=== PATIENT | male | born 1925 | race African-American/Black ===

== ENCOUNTER 2016-04-22 08:50 | Emergency (ER) | payer MEDICARE, MEDICAID ==
[~2016-04-22] VITALS: Ht 165.1 cm; Wt 59.0 kg
[2016-04-22 09:55] LABS: HEMATOCRIT. 40.1 % (42.0-52.0); HEMOGLOBIN. 13.4 g/dL (14.0-18.0); MEAN CORPUSCULAR HEMOGLOBIN 33.3 pg (28.0-32.0); MEAN CORPUSCULAR HGB CONC 33.3 g/dL (31.0-37.0); MEAN PLATELET VOLUME 9.1 fl (7.4-10.4); PLATELET 136 x1000/uL (130-400); RED BLOOD CELL COUNT 4.01 mill/uL (4.7-6.1); RED CELL DISTRIBUTION WIDTH 13.7 % (11.6-14.6); WHITE BLOOD COUNT 11.1 x1000/uL (4.5-11.0)
[2016-04-22 10:00] LABS: DIFFERENTIAL COMMENT 1
[2016-04-22 10:03] LABS: INR 1.3; PROTHROMBIN TIME 13.3 sec
[2016-04-22 10:11] LABS: ALANINE AMINOTRANSFERASE 21 IU/L (13-61); ALBUMIN 3.4 g/dL (3.4-5.0); ANION GAP 12; CALCIUM 9.1 mg/dL (8.5-10.1); CARBON DIOXIDE 25 mEq/L (21-32); CHLORIDE 108 mEq/L (98-107); INDEX HEMOLYSI 1 (1-3); INDEX ICTERIC 1 (1-4); INDEX LIPEMIC 1 (1-3); NT PRO B-TYPE NATRIURETIC PEP 2441 pg/mL (5-125); TROPONIN I 0.22 ng/mL (0.00-0.04); UREA NITROGEN BLOOD 14 mg/dL (7-21); eGFR 58 mL/min (>60)
[2016-04-22 10:19] LABS: ATYPICAL LYMPHOCYTES 1
[2016-04-22 10:20] LABS: PLATELET ESTIMATE NORMAL
[2016-04-22] MEDS ORDERED: LIDOCAINE HCL 2% JELLY 5ML TOP ONE (10:45)
[2016-04-22 11:50] VITALS: BP 144/72
== END 2016-04-22 11:50 | disposition home or self-care (01) ==
LOC: ER 10:07
DX: R33.9 Retention of urine, unspecified (principal); R10.30 Lower abdominal pain, unspecified; I12.9 Hypertensive chronic kidney disease with stage 1 through stage 4 chronic kidney disease, or unspecified chronic kidney disease; J45.909 Unspecified asthma, uncomplicated; N28.89 Other specified disorders of kidney and ureter; I25.10 Atherosclerotic heart disease of native coronary artery without angina pectoris; Z87.891 Personal history of nicotine dependence; Z85.21 Personal history of malignant neoplasm of larynx; Z95.5 Presence of coronary angioplasty implant and graft
CPT/HCPCS: 36415; 51702; 71010; 80053; 82962; 83880; 84484; 85025; 85610; 93005; 99285